=== PATIENT | female | born 1955 | race Caucasian/White ===

== ENCOUNTER 2021-05-14 10:21 | Emergency (ER) | payer MEDICARE, BC ==
[~2021-05-14] VITALS: Ht 154.9 cm; Wt 77.0 kg
[2021-05-14] MEDS ORDERED: normal saline 1000ML IV soln IVB ONE (10:30)
[2021-05-14] MEDS ORDERED: ondansetron/PF 4mg/2ml inj IV ONE ×2 (10:30→13:25)
[2021-05-14 10:49] LABS: BASOPHILS % (AUTO) 0.1 % (0-1); EOSINOPHILS % (AUTO) 0 % (0-6); HEMATOCRIT 48.6 % (35.0-45.0); HEMOGLOBIN 16.4 g/dl (12.0-16.0); LYMPHOCYTES # (AUTO) 0.3 X10'3 (1.1-4.8); LYMPHOCYTES % (AUTO) 2.8 % (21-51); MEAN CORPUSCULAR HEMOGLOBIN 30.8 PG (27.0-31.0); MEAN CORPUSCULAR HGB CONC 33.8 g/dL (33.0-36.5); MEAN PLATELET VOLUME 7.8 FL (7.4-10.4); MONOCYTES # (AUTO) 0.5 X10'3 (0-0.9); MONOCYTES % (AUTO) 4.2 % (2-12); NEUTROPHILS # (AUTO) 10.2 X10'3 (1.8-7.7); NEUTROPHILS % (AUTO) 92.9 % (42-75); PLATELET COUNT 244 X10'3 (140-440); RED BLOOD COUNT 5.34 X10'6 (4.20-5.60); RED CELL DISTRIBUTION WIDTH 14.1 % (11.5-14.5)
[2021-05-14 11:05] LABS: ALANINE AMINOTRANSFERASE 21 U/L (12-78); ALBUMIN 3.9 G/DL (3.4-5.0); ALBUMIN/GLOBULIN RATIO 1.1 (1.1-1.5); ALKALINE PHOSPHATASE 80 IU/L (46-116); ANION GAP 16 (8-16); ASPARTATE AMINO TRANSFERASE 18 U/L (10-37); BILIRUBIN,TOTAL 0.9 MG/DL (0.1-1.0); BLOOD UREA NITROGEN 29 MG/DL (7-18); CALCIUM 9.3 MG/DL (8.5-10.1); CHLORIDE 107 MMOL/L (99-107); CREATININE 1.38 MG/DL (0.40-0.90); GLUCOSE 137 MG/DL (70-104); POTASSIUM 4.1 MMOL/L (3.5-5.1); SODIUM 143 MMOL/L (135-145); TOTAL PROTEIN 7.5 G/DL (6.4-8.2); eGFR 38 ML/MIN
[2021-05-14 11:08] LABS: LIPASE < 50 U/L (73-393); MAGNESIUM 2.1 MG/DL (1.5-2.4)
--- NOTE | 2021-05-14 11:47 | NUR ---
assisted pt to bathroom
[2021-05-14 12:06] LABS: CLARITY,URINE CLEAR (Clear); COLOR,URINE YELLOW (Yellow); GLUCOSE, URINE NEGATIVE (Neg); KETONES,URINE NEGATIVE (Neg); LEUKOCYTE ESTERASE ,URINE NEGATIVE (Neg); NITRITES, URINE NEGATIVE (Neg); OCCULT BLOOD,URINE SMALL (Neg); PROTEIN,URINE TRACE mg/dl (Neg); UROBILINOGEN,URINE 0.2 E.U/dL (0.2-1.0)
[2021-05-14 12:07] LABS: UA COLLECTION TYPE NON-SPECIFIED
[2021-05-14 12:21] LABS: BACTERIA,URINE 1+ /HPF (Neg); HYALINE CASTS >30 /LPF (NEGATIVE); SQUAMOUS EPITHELIAL CELL,UR MODERATE /LPF (FEW)
[2021-05-14 12:22] LABS: RBC,URINE 0-2 /HPF (0-2); WBC,URINE 0-4 /HPF (0-4)
[2021-05-14] MEDS ORDERED: ONDA4TAB12 PO (12:52)
[2021-05-14] MEDS ORDERED: CIPR-259 PO (12:52)
[2021-05-14] MEDS ORDERED: METR-159 PO (12:52)
[2021-05-14 13:33] VITALS: BP 115/72
== END 2021-05-14 13:36 | disposition home or self-care (01) ==
LOC: ER 10:23
DX: K52.9 Noninfective gastroenteritis and colitis, unspecified (principal); G44.89 Other headache syndrome; R11.2 Nausea with vomiting, unspecified; R10.84 Generalized abdominal pain; N28.9 Disorder of kidney and ureter, unspecified; E86.0 Dehydration; E03.9 Hypothyroidism, unspecified; Z90.710 Acquired absence of both cervix and uterus; Z98.890 Other specified postprocedural states; Z79.2 Long term (current) use of antibiotics
CPT/HCPCS: 36415; 70450; 74176; 80053; 81001; 83690; 83735; 84484; 85025; 96361; 96374; 96376; 99284; J2405; J7030

== ENCOUNTER 2022-12-08 05:28 | Inpatient (IN) | payer MEDICARE, BC ==
[2022-12-01 14:28] LABS: BASOPHILS % (AUTO) 0.6 % (0-1); EOSINOPHILS # (AUTO) 0.1 X10'3 (0-0.9); LYMPHOCYTES # (AUTO) 2.1 X10'3 (1.1-4.8); LYMPHOCYTES % (AUTO) 32.4 % (21-51); MEAN CORPUSCULAR HEMOGLOBIN 30.2 PG (27.0-31.0); MEAN CORPUSCULAR HGB CONC 32.8 g/dL (33.0-36.5); MEAN PLATELET VOLUME 7.8 FL (7.4-10.4); MONOCYTES # (AUTO) 0.5 X10'3 (0-0.9); MONOCYTES % (AUTO) 7.6 % (2-12); NEUTROPHILS # (AUTO) 3.7 X10'3 (1.8-7.7); NEUTROPHILS % (AUTO) 57.4 % (42-75); PRE OP HEMATOCRIT 44.4 % (35.0-45.0); PRE OP HEMOGLOBIN 14.6 g/dL (12.0-16.0); PRE OP PLATELET COUNT 268 X10'3 (140-440); PRE OP WHITE BLOOD COUNT 6.5 10'3 (4.8-10.8); RED BLOOD COUNT 4.82 X10'6 (4.20-5.60); RED CELL DISTRIBUTION WIDTH 13.8 % (11.5-14.5)
[2022-12-01 14:50] LABS: ALBUMIN 3.8 G/DL (3.4-5.0); ALBUMIN/GLOBULIN RATIO 1.2 (1.1-1.5); ALKALINE PHOSPHATASE 104 IU/L (46-116); BLOOD UREA NITROGEN 16 MG/DL (7-18); BUN/CREATININE RATIO 19.5 (10.0-20.0); CHLORIDE 106 MMOL/L (99-107); CREATININE 0.82 MG/DL (0.40-0.90); PRE OP ALT 22 U/L (30-65); PRE OP ANION GAP 8 (8-16); PRE OP AST 15 U/L (10-37); PRE OP BILIRUB, TOTAL 0.4 MG/DL (0.0-1.0); PRE OP GLUCOSE 102 MG/DL (70-104); PRE OP POTASSIUM 3.4 MMOL/L (3.4-5.1); PRE OP SODIUM 141 MMOL/L (135-145); THYROID STIMULATING HORMONE 1.97 ulU/ml (0.34-4.50); TOTAL PROTEIN 6.9 G/DL (6.4-8.2); eGFR 70 ML/MIN
[~2022-12-08] VITALS: Ht 165.1 cm; Wt 69.9 kg
[2022-12-08] VITALS (40 sets, daily range): BP systolic 93–153; BP diastolic 48–83; PULSE 47–78; RESP 9–18; TEMP 97.4–97.8; O2SAT 91–99
[~2022-12-08 05:28] MED LIST: BUPR-114 PO; CALC500T33 PO; IBUP-24 PO; LEVO50TA PO; ringers solution, lacted 1,000 ML IV SCH
[2022-12-08] MEDS ORDERED: vancomycin 1,500 MG in NS 300ml IV soln IV ONE (05:30)
[2022-12-08] MEDS ORDERED: tranexamic acid 650mg tablet PO ONE (05:30)
[2022-12-08] MEDS ORDERED: famotidine 20mg tablet PO ONE (05:30)
[2022-12-08] MEDS ORDERED: cefazolin 2gm/D5W 100mL 100 ML IV ONE (05:30)
[2022-12-08] MEDS ORDERED: BUPIVACAINE/MELOXICAM 14 ML VIAL IL ONE ×2 (07:45→09:55)
[2022-12-08] MEDS ORDERED: cloNIDine hcl/PF 100mcg/ml inj ONE (08:01)
[2022-12-08] MEDS ORDERED: MIDAZolam 1 MG/ML 5ML VIAL ONE (08:03)
[2022-12-08] MEDS ORDERED: fentaNYL/PF 50MCG/1 ML 2ML syringe ONE (08:03)
[2022-12-08] MEDS ORDERED: propofol inj 20 ML IV ONE (09:10)
[2022-12-08] MEDS ORDERED: ondansetron/PF 4mg/2ml inj ONE (09:10)
[2022-12-08] MEDS ORDERED: ondansetron/PF 4mg/2ml inj IV PRN (09:35)
[2022-12-08] MEDS ORDERED: proCHLORperazine 10 MG/2 ml inj IV PRN (09:35)
[2022-12-08] MEDS ORDERED: morphine 2 MG/ML inj. syringe IV PRN (09:35)
[2022-12-08] MEDS ORDERED: ketorolac trometh. 30mg/ml inj. IV ONE (09:35)
[2022-12-08] MEDS ORDERED: ringers solution, lacted 1,000 ML IV SCH (09:35)
[2022-12-08] MEDS ORDERED: meperidine/PF 25mg/ml syringe IV PRN ×3 (09:35)
[2022-12-08] MEDS ORDERED: morphine 4 MG/ML inj SYRINge IV PRN (09:35)
[2022-12-08] MEDS ORDERED: ROPIVAcaine 0.5% (5mg/ml) 30ml vial ONE (09:47)
[2022-12-08] MEDS ORDERED: BUPIVAcaine/PF 2.5 mg/ml (0.25%) 30ml vial ONE (10:04)
--- NOTE | 2022-12-08 10:27 | NUR ---
Received from OR via HOSPITAL BED TO RR 8, accompanied by Anesthesiologist LULU and report given by Anesthesiologist. PT PRESENTS ON RA AND DENIES PAIN AT THIS TIME. VSS AND LR RUNNING THRU PIV IN LEFT HAND. RIGHT LEG DRESSING CDI WITH WRAP AND ICE IN PLACE. ELEVATED LEG. PT IS ABLE TO MOVE ALL EXTREMITIES AND NO LOSS OF SENSATION.
[2022-12-08] MEDS ORDERED: acetaminophen 1,000mg/100ml IV 100 ML IV STA (12:43)
--- NOTE | 2022-12-08 12:43 | NUR ---
CALLED PLACED TO DR LAWSON. ADVISED OF PATIENTS SYMPTOMS AND WHAT INTERVENTIONS HAVE BEEN COMPLETED. ORDER TO INFUSE 1GM TYLENOL IV NOW AND, IF PATIENT STILL HAS NON-TOLERABLE PAIN THEN 0.2MG DILAUDID IVP ONCE.
[2022-12-08] MEDS ORDERED: HYDROmorphone/PF 0.2 MG/ML SYRINGE IV PRN (12:45)
--- NOTE | 2022-12-08 13:05 | NUR ---
PATIENT IS SITTING UP IN BED TRYING TO EAT SOME LUNCH. NO S/S OF DISTRESS NOTED.
[2022-12-08] MEDS: HYDROcodone/acetaminophen 10/325mg tab PO PRN ×2 (14:33→19:24)
--- NOTE | 2022-12-08 14:37 | NUR ---
PT STABLE FOR TRANSFER TO ROOM 4011B PER MD ORDERS. REPORT CALLED TO PRIMARY NURSE JENNIFER. ALL QUESTIONS, COMMENTS, AND CONCERNS WERE ANSWERED AT THIS TIME. NO S/S OF DISTRESS NOTED AND PATIENTS AT BEDSIDE. BILATERAL PEDAL PULSES ARE STRONG AND PALPABLE. DRESSING AND WRAP TO RIGHT KNEE REMAINS CDI AND ICE IN PLACE. PATIENT HOOKED UP TO POST OP VITALS, CALL LIGHT WITHIN REACH, BLL. PRIMARY NURSE AWARE OF PATIENT TRANSFER.
[2022-12-08] MEDS ORDERED: ceFAZolin/D5W- 1GM premix 50 ML IV SCH (16:00)
--- NOTE | 2022-12-08 18:00 | NUR ---
I have reviewed and agree with interventions, assessments, and documentation by Nicole Sorto LVN.
[2022-12-09] MEDS: HYDROcodone/acetaminophen 10/325mg tab PO PRN ×3 (01:35→10:33)
[2022-12-09 06:00] VITALS: BP 87/52; PULSE 72; RESP 15; TEMP 98.1; O2SAT 95
--- NOTE | 2022-12-09 06:30 | NUR ---
Problems reprioritized. Patient report given, questions answered & plan of care reviewed with MOE PRIETO.
[2022-12-09] MEDS ORDERED: levoTHYROXINE 25mcg tablet PO SCH (07:00)
[2022-12-09] MEDS: calcium carbonate 500mg chew tablet PO SCH ×2 (07:57→12:30)
[2022-12-09 08:00] VITALS: RESP 15; O2SAT 95
[2022-12-09] MEDS ORDERED: buPROPion SR 150mg tablet PO SCH (08:00)
[2022-12-09 08:40] VITALS: RESP 16; O2SAT 94
[2022-12-09 10:00] VITALS: BP 105/52; PULSE 58; RESP 16; TEMP 97.5; O2SAT 96
--- NOTE | 2022-12-09 12:05 | NUR ---
Joint surgery consult: Pt s/p R knee surgery this admit per EMR. Pt seen by RD at bedside for written/verbal high protein diet ed w/ RD contact information provided. Pt reports nausea persistent related to substantial pain w/ RN aware this AM. Pt reports attempts at PO worsen nausea. RD encouraged pt to make food preferences known if wants high wire artist food options WS tonight. RD encouraged pt to contact dietitian's office if further nutrition questions/concerns. Pt would benefit from liberalizing to regular diet if MD agreeable as no cardiac hx found in EMR at this time and initial poor PO intake. Rec: 1. liberalize to regular diet given no cardiac hx in EMR and initial poor PO acceptance 2. If prolonged admit and poor intake persists; consider Ensure Enlive vs Sawyer shakes BID to assist w/ wound healing needs. Addendum: 12/09/22 at [address] Amended: Links added.
[2022-12-09] MEDS ORDERED: oxyCODONE IR 5mg (immed. release) tablet PO ONE (12:10)
--- NOTE | 2022-12-09 13:00 | NUR ---
I have reviewed and agree with interventions, assessments, and documentation by Nicole Sorto LVN.
[2022-12-09 13:45] VITALS: RESP 16; O2SAT 96
--- NOTE | 2022-12-09 15:03 | NUR ---
Patient discharged home via pov, personal belongings sent with. PIV discontinued, drsg changed as ordered. Patient alert and appropriate at the time of discharge.
== END 2022-12-09 14:54 | disposition home or self-care (01) | DRG 470 ==
LOC: PAS IN 05:28 → ORTHO 4S 14:55
PROVIDERS: ADMIT Orthopaedic Surgery; ATTEND Orthopaedic Surgery
PROC: 8E0YXBZ Computer Assisted Procedure of Lower Extremity (ICD-10-PCS; 2022-12-08)
PROC: 8E0Y0CZ Robotic Assisted Procedure of Lower Extremity, Open Approach (ICD-10-PCS; 2022-12-08)
PROC: 0SRC0J9 Replacement of Right Knee Joint with Synthetic Substitute, Cemented, Open Approach (ICD-10-PCS; principal; 2022-12-08 07:58)
DX: M17.11 Unilateral primary osteoarthritis, right knee (principal); M21.061 Valgus deformity, not elsewhere classified, right knee
CPT/HCPCS: 36415; 80053; 82948; 84443; 85025; 87081; 97110; 97161; 97530; A4215; A4615; A6258; A7000; C1713; C1758; C1776; G0378; J0131; J0690; J0735; J0780; J1170; J1885; J2175; J2250; J2405; J2704; J2795; J3010; J3370; J3490; J7120